=== PATIENT | male | born 1990 | race Caucasian/White ===

== ENCOUNTER 2017-11-04 11:42 | Emergency (ER) | payer OTHER ==
[2017-11-04 12:03] VITALS: BP 132/82
--- NOTE | 2017-11-04 12:26 | UC ---
Hand/Wrist HPI - HPI Summary HPI Summary: Patient reports sliding down a couple stairs yesterday reached his right hand out to catch himself has pain in the ulnar aspect of his right wrist. Also has some muscle spasms in his mid back - History Of Current Complaint Chief Complaint: UCUpperExtremity Stated Complaint: RT WRIST & BACK PAIN S/P FALL Time Seen by Provider: 11/04/17 12:22 Hx Obtained From: Patient ?: No Onset/Duration: Sudden Onset Pain Intensity: 4 Pain Scale Used: 0-10 Numeric Character Of Pain: Aching Aggravating Factor(s): Movement Alleviating Factor(s): OTC Meds Associated Signs And Symptoms: Positive: Negative Related History: Dominant Hand Right - Allergies/Home Medications Allergies/Adverse Reactions: Allergies Allergy/AdvReac Type Severity Reaction Status Date / Time No Known Allergies Allergy Verified 11/04/17 12:05 Home Medications: Home Medications Lisdexamfetamine Dimesylate [Vyvanse] 50 mg PO DAILY 11/04/17 [History Confirmed 11/04/17] cloNIDine HCl [Clonidine HCl 0.3 MG] 0.3 mg PO BEDTIME 11/04/17 [History Confirmed 11/04/17] PMH/Surg Hx/FS Hx/Imm Hx Previously Healthy: No Psychological History: Other Other Psychological History: ADHD - Surgical History Surgical History: None - Family History Known Family History: Positive: None - Social History Occupation: Employed Full-time Lives: With Family Alcohol Use: Occasionally Substance Use Type: None Smoking Status (MU): Heavy Every Day Tobacco Smoker Type: Smokeless Tobacco Amount Used/How Often: 1/2-1 can per day Length of Time of Smoking/Using Tobacco: since age 19 Have You Smoked in the Last Year: No Cessation Counseling: Patient Advised to Stop Review of Systems Constitutional: Negative Skin: Negative Eyes: Negative ENT: Negative Respiratory: Negative Cardiovascular: Negative Gastrointestinal: Negative Genitourinary: Negative Motor: Negative Neurovascular: Negative Musculoskeletal: Arthralgia - has right wrist pain, Myalgia - bilateral mid low back pain Neurological: Negative Psychological: Negative Is Patient Immunocompromised?: No All Other Systems Reviewed And Are Negative: Yes Physical Exam Triage Information Reviewed: Yes Appearance: Well-Appearing, No Pain Distress, Well-Nourished Vital Signs: Initial Vital Signs Temp 98.1 F 11/04/17 11:53 Pulse 91 05/18/18 11:53 Resp 16 11/04/17 11:53 BP 132/82 11/04/17 11:53 Pulse Ox 99 11/04/17 11:53 Vital Signs Reviewed: Yes Eye Exam: Normal Eyes: Positive: Conjunctiva Clear ENT Exam: Normal ENT: Positive: Normal ENT inspection, Hearing grossly normal. Negative: Trismus , Muffled voice, Hoarse voice Dental Exam: Normal Neck exam: Normal Neck: Positive: Supple, Nontender, No Lymphadenopathy Respiratory Exam: Normal Respiratory: Positive: Chest non-tender, Lungs clear, Normal breath sounds, No respiratory distress, No accessory muscle use Cardiovascular Exam: Normal Cardiovascular: Positive: RRR, No Murmur, Pulses Normal, Brisk Capillary Refill Musculoskeletal Exam: Normal Musculoskeletal: Positive: Strength Intact, ROM Intact, No Edema Neurological Exam: Normal Neurological: Positive: Alert, Muscle Tone Normal Psychological Exam: Normal Skin Exam: Normal Diagnostics - Radiology No standard instances Xray Interpretation: No Acute Changes Radiology Interpretation Completed By: ED Physician, Radiologist Hand/Wrist Course/Dx - Course Course Of Treatment: Malvin wrap applied, recommended rest ice and elevation, anti- inflammatories prescribed, small amount of muscle relaxer prescribed for his back spasm, smokeless tobacco cessation information provided, discharged referral for primary care also provided - Differential Dx/Diagnosis Provider Diagnoses: Nicotine dependent, right wrist contusion low back muscle spasm Discharge - Sign-Out/Discharge Documenting (check all that apply): Discharge/Admit/Transfer - Discharge Plan Condition: Stable Disposition: HOME Prescriptions: Cyclobenzaprine TAB* [Flexeril 10 MG TAB*] 10 mg PO BID PRN #10 tab PRN Reason: muscle spasm Naproxen [Naproxen 500 mg tab] 500 mg PO BID PRN #20 tablet.dr ZARATE Reason: back and wrist pain Patient Education Materials: Muscle Strain (ED), Contusion in Adults (ED), R.I.C.E. Treatment (ED), Lower Back Exercises (ED) Forms: *Work Release Referrals: [facility] [Outside] ARGENTINA Davison [Medical Doctor] - - Billing Disposition and Condition Condition: STABLE Disposition: HOME
--- NOTE | 2017-11-04 12:48 | RAD ---
Indication: Right wrist pain. 3 views of the wrist demonstrates no fracture. No other bone or joint abnormality is identified. IMPRESSION: NO FRACTURE OF THE WRIST IS NOTED.
== END 2017-11-04 13:24 | disposition home or self-care (01) ==
LOC: UCCORT 11:42
DX: S60.211A Contusion of right wrist, initial encounter (principal); W10.9XXA Fall (on) (from) unspecified stairs and steps, initial encounter; Y92.9 Unspecified place or not applicable; M62.830 Muscle spasm of back; F17.290 Nicotine dependence, other tobacco product, uncomplicated
CPT/HCPCS: 99201; G0463

== ENCOUNTER 2017-11-09 20:04 | Emergency (ER) | payer OTHER ==
[2017-11-09 20:19] VITALS: BP 128/71
--- NOTE | 2017-11-09 20:53 | ED ---
Upper Extremity Pain - HPI Summary HPI Summary: 27 yr old with right wrist and hand pain. Onset on 11/03 when fell down three stairs and landed on the right hand and fingers bent back. Pain is moderate. Pain worse with ROM. He has been working in [employer] since and having trouble. No deformity or bruising. He reports not being able to move fingers and numbness in the hand. He states he needs to be taken out of work. Pain is mostly over the lateral wrist, and moderate to severe. - History of Current Complaint Chief Complaint: UCUpperExtremity Stated Complaint: RIGHT WRIST RECHECK - Allergies/Home Medications Allergies/Adverse Reactions: Allergies Allergy/AdvReac Type Severity Reaction Status Date / Time No Known Allergies Allergy Verified 11/09/17 20:17 PMH/Surg Hx/FS Hx/Imm Hx Infectious Disease History: No Infectious Disease History: Denies: Traveled Outside the [place] in Last 30 Days - Family History Known Family History: Positive: None - Social History Alcohol Use: Occasionally Substance Use Type: Reports: None Smoking Status (MU): Heavy Every Day Tobacco Smoker Type: Smokeless Tobacco Amount Used/How Often: 1/2-1 can per day Length of Time of Smoking/Using Tobacco: since age 19 Have You Smoked in the Last Year: No Review of Systems Positive: Other - wrist pain right All Other Systems Reviewed And Are Negative: Yes Physical Exam Triage Information Reviewed: Yes Vital Signs On Initial Exam: Initial Vitals Temp Pulse Resp BP Pulse Ox 97.8 F 78 20 128/71 98 11/09/17 20:14 11/09/17 20:14 11/09/17 20:14 11/09/17 20:14 11/09/17 20:14 Vital Signs Reviewed: Yes Appearance: Positive: Obese Skin: Positive: Warm, Skin Color Reflects Adequate Perfusion Head/Face: Positive: Normal Head/Face Inspection Eyes: Positive: EOMI ENT: Positive: Normal ENT inspection Neck: Positive: Supple, Nontender Respiratory/Lung Sounds: Positive: Clear to Auscultation, Breath Sounds Present , Other - normal effort Cardiovascular: Positive: Pulses are Symmetrical in both Upper and Lower Extremities - right wrist Abdomen Description: Positive: Nontender Musculoskeletal: Positive: Strength/ROM Intact Neurological: Positive: Sensory/Motor Intact, Alert, Oriented to Person Place, Time, CN Intact II-III Psychiatric: Positive: Normal AVPU Assessment: Alert - Leonora Coma Scale Best Eye Response: 4 - Spontaneous Best Motor Response: 6 - Obeys Commands Best Verbal Response: 5 - Oriented Coma Scale Total: 15 Procedures - Splinting Location: right wrist Hand-Made Type: orthoglass Splint: thumb spica Pre-Proc Neuro Vasc Exam: normal Post-Proc Neuro Vasc Exam: normal Diagnostics - Vital Signs Vital Signs Temp Pulse Resp BP Pulse Ox 11/09/17 20:14 97.8 F 78 20 128/71 98 - Laboratory Lab Statement: Any lab studies that have been ordered have been reviewed, and results considered in the medical decision making process. - Radiology right wrist Xray Interpretation: Positive (See Comments) - decreased soft tissue swelling compared to last. Radiology Interpretation Completed By: Radiologist Course/Dx - Course Course Of Treatment: wrist injury. Thumb spika applied, ortho referral. - Diagnoses Provider Diagnoses: Occult fracture of scaphoid, Nondisplaced fracture Discharge - Sign-Out/Discharge Documenting (check all that apply): Discharge/Admit/Transfer - Discharge Plan Condition: Good Disposition: HOME Patient Education Materials: Scaphoid Fracture (ED), Wrist Fracture in Adults ( ED) Referrals: No Primary Care Phys,NOPCP [Primary Care Provider] - Francisco Blandon MD [Medical Doctor] - - Billing Disposition and Condition Condition: GOOD Disposition: HOME
--- NOTE | 2017-11-09 21:11 | RAD ---
INDICATION: Fall November 03, 2017. Negative radiographs November 04, 2017. Increased pain and limitation in range of motion of the fingers. COMPARISON: November 04, 2017 TECHNIQUE: AP, lateral, and oblique views RIGHT wrist. REPORT: Normal articular alignment and preserved joint spaces. No cortical disruption or suspicious trabecular irregularity to suggest fracture. Mild nonfocal soft tissue swelling. IMPRESSION: Mild nonfocal soft tissue swelling decreased compared with the prior exam. No radiographic evidence for fracture.
== END 2017-11-09 21:38 | disposition home or self-care (01) ==
LOC: UCCORT 20:04
DX: M25.531 Pain in right wrist (principal); F17.220 Nicotine dependence, chewing tobacco, uncomplicated
CPT/HCPCS: 99212; G0463

== ENCOUNTER 2018-04-04 19:34 | Emergency (ER) | payer OTHER ==
[2018-04-04 20:19] VITALS: BP 143/92
--- NOTE | 2018-04-04 20:24 | UC ---
Throat Pain/Nasal Lam HPI - HPI Summary HPI Summary: 27 yo male presents with sore throat, sinus pain/pressure/congestion, and right ear pain for the last week. He is most concerned because his is and he does not want to get her sick. He has not been taking anything OTC for his symptoms. Denies fever, chills, SOB, chest pain, abdominal pain, n/v. - History of Current Complaint Chief Complaint: UCRespiratory Stated Complaint: ST/EAR COMPLAINT/STUFFY Time Seen by Provider: 04/04/18 20:24 Hx Obtained From: Patient Onset/Duration: Gradual Onset Severity: Moderate Pain Intensity: 6 Pain Scale Used: 0-10 Numeric - Allergies/Home Medications Allergies/Adverse Reactions: Allergies Allergy/AdvReac Type Severity Reaction Status Date / Time hydrocodone Allergy Unknown AGGITATION, Verified 04/04/18 20:09 NAUSEA Home Medications: Home Medications BuPROPion XL* [Bupropion XL*] 300 mg PO DAILY 04/04/18 [History Confirmed ] Ibuprofen TAB* [Advil TAB*] 800 mg PO Q6H PRN 04/04/18 [History Confirmed ] PMH/Surg Hx/FS Hx/Imm Hx Psychological History: Anxiety, Depression - Surgical History Surgical History: None - Family History Known Family History: Positive: None - Social History Occupation: Employed Full-time Lives: With Family Alcohol Use: Occasionally Substance Use Type: None Smoking Status (MU): Never Smoked Tobacco Type: Smokeless Tobacco Amount Used/How Often: 1/2-1 can per day Length of Time of Smoking/Using Tobacco: since age 19 Have You Smoked in the Last Year: No Review of Systems Constitutional: Negative Skin: Negative Eyes: Negative ENT: Sore Throat, Ear Ache, Nasal Discharge, Sinus Congestion, Sinus Pain/ Tenderness Respiratory: Cough Cardiovascular: Negative Gastrointestinal: Negative Neurological: Negative Psychological: Negative All Other Systems Reviewed And Are Negative: Yes Physical Exam - Summary Physical Exam Summary: GENERAL: NAD. WDWN. No pain distress. SKIN: No rashes, sores, lesions, or open wounds. HEENT: Head: AT/NC Eyes: EOM intact. Conjunctiva clear without inflammation or discharge. Ears: Hearing grossly normal. RIGHT TM with mild erythema and bulging. No canal edema or drainage. Nose: Nasal mucosa mildly swollen and erythematous with yellow discharge. TTP maxillary and frontal sinus. Throat: Posterior oropharynx without exudates, erythema, or tonsillar enlargement. Uvula midline. NECK: Supple. Nontender. No lymphadenopathy. CHEST: CTAB. No r/r/w. No accessory muscle use. Breathing comfortably and in no distress. CV: RRR. Without m/r/g. Pulses intact. NEURO: Alert. PSYCH: Age appropriate behavior. Triage Information Reviewed: Yes Vital Signs: Initial Vital Signs Temp 98 F 04/04/18 20:14 Pulse 73 04/04/18 20:14 Resp 18 04/04/18 20:14 BP 143/92 04/04/18 20:14 Pulse Ox 97 04/04/18 20:14 Vital Signs Reviewed: Yes Throat Pain/Nasal Course/Dx - Course Course Of Treatment: Right otitis media - Differential Dx/Diagnosis Provider Diagnoses: Right otitis media Discharge - Sign-Out/Discharge Documenting (check all that apply): Patient Departure All imaging exams completed and their final reports reviewed: No Studies - Discharge Plan Condition: Stable Disposition: HOME Prescriptions: Amoxicillin PO (*) [Amoxicillin 500 MG CAP*] 500 mg PO Q12H #14 cap Patient Education Materials: Ear Infection (ED) Referrals: Jane Alcaraz MD [Primary Care Provider] - Additional Instructions: If you develop a fever, shortness of breath, chest pain, new or worsening symptoms - please call your PCP or go to the ED. Your blood pressure was high at todays visit. Please see your primary provider within 4 weeks for recheck and re-evaluation. - Billing Disposition and Condition Condition: STABLE Disposition: Home - Attestation Statements Provider Attestation: I was available for consult. This patient was seen by the RODRICK. The patient was not presented to, seen by, or examined by me. -Honey
== END 2018-04-04 20:41 | disposition home or self-care (01) ==
LOC: UCCORT 19:34
DX: H66.91 Otitis media, unspecified, right ear (principal); F41.9 Anxiety disorder, unspecified; F32.9 Major depressive disorder, single episode, unspecified; R03.0 Elevated blood-pressure reading, without diagnosis of hypertension; F17.220 Nicotine dependence, chewing tobacco, uncomplicated; Z88.5 Allergy status to narcotic agent
CPT/HCPCS: 99212; G0463

== ENCOUNTER 2018-09-26 10:47 | Emergency (ER) | payer OTHER ==
[2018-09-26 11:15] VITALS: BP 124/77
--- NOTE | 2018-09-26 11:28 | UC ---
Abdominal Pain Male HPI - HPI Summary HPI Summary: vomiting and diarrhea x 3 days diffuse abdominal pain , cramping , no radiation of the pain , symptoms worse with eating , better npo no fever, + chills - History of Current Complaint Chief Complaint: UCGI Stated Complaint: VOMITING/DIARRHEA Time Seen by Provider: 09/26/18 11:08 Hx Obtained From: Patient Onset/Duration: Gradual Onset, Lasting Days - 3, Still Present Timing: Constant Severity Initially: Moderate Severity Currently: Moderate Pain Intensity: 2 Location: Diffuse Radiates: No Character: Cramping Aggravating Factor(s): Food Alleviating Factor(s): Other - NPO Associated Signs And Symptoms: Positive: Nausea, Vomiting, Diarrhea. Negative: Diaphoresis, Fever, Cough, Chest Pain, Dizzy, Back Pain, Constipation, Blood in Stool, Urinary Symptoms, Decreased Appetite, Penile Discharge - Allergies/Home Medications Allergies/Adverse Reactions: Allergies Allergy/AdvReac Type Severity Reaction Status Date / Time hydrocodone Allergy Unknown AGGITATION, Verified 09/26/18 11:10 NAUSEA oxycodone Allergy Hallucinati Verified 09/26/18 11:10 ons PMH/Surg Hx/FS Hx/Imm Hx - Additional Past Medical History Additional PMH: ADHD Depression Psychological History: Depression - Surgical History Surgical History: Yes Surgery Procedure, Year, and Place: WISDOM TEETH - Family History Known Family History: Positive: None Negative: Diabetes - Social History Alcohol Use: Occasionally Substance Use Type: None Smoking Status (MU): Never Smoked Tobacco Type: Smokeless Tobacco Amount Used/How Often: 1/2-1 can per day Length of Time of Smoking/Using Tobacco: since age 19 Have You Smoked in the Last Year: No Review of Systems All Other Systems Reviewed And Are Negative: Yes Constitutional: Positive: Negative Skin: Positive: Negative Eyes: Positive: Negative ENT: Positive: Negative Respiratory: Positive: Negative Gastrointestinal: Positive: Abdominal Pain, Vomiting, Diarrhea, Nausea Genitourinary: Positive: Negative Is Patient Immunocompromised?: No Physical Exam Triage Information Reviewed: Yes Appearance: Well-Appearing, No Pain Distress, Well-Nourished Vital Signs: Initial Vital Signs Temp 96.1 F 09/26/18 11:12 Pulse 78 09/26/18 11:12 Resp 16 09/26/18 11:12 BP 124/77 09/26/18 11:12 Pulse Ox 99 09/26/18 11:12 Eye Exam: Normal ENT: Positive: Normal ENT inspection, Hearing grossly normal, Pharynx normal Neck: Positive: Supple, Nontender, No Lymphadenopathy Respiratory: Positive: Chest non-tender, Lungs clear, Normal breath sounds Cardiovascular: Positive: RRR, No Murmur, Pulses Normal Abdomen Description: Positive: Nontender, Soft. Negative: CVA Tenderness (R), CVA Tenderness (L), Distended, Guarding Bowel Sounds: Positive: Present Skin Exam: Normal Abd Pain Male Course/Dx - Differential Dx/Clinical Impression Provider Diagnosis: Gastroenteritis Discharge - Sign-Out/Discharge Documenting (check all that apply): Patient Departure All imaging exams completed and their final reports reviewed: No Studies - Discharge Plan Condition: Stable Disposition: HOME Patient Education Materials: Gastroenteritis (DC) Forms: *Work Release Referrals: Jane Alcaraz MD [Primary Care Provider] - If Needed - Billing Disposition and Condition Condition: STABLE Disposition: Home
== END 2018-09-26 11:31 | disposition home or self-care (01) ==
LOC: UCCORT 10:47
DX: K52.9 Noninfective gastroenteritis and colitis, unspecified (principal); F90.9 Attention-deficit hyperactivity disorder, unspecified type; F32.9 Major depressive disorder, single episode, unspecified; Z88.5 Allergy status to narcotic agent; F17.220 Nicotine dependence, chewing tobacco, uncomplicated
CPT/HCPCS: 99211; G0463